=== PATIENT | male | born 1965 | race African-American/Black ===

== ENCOUNTER 2017-10-31 15:57 | Emergency (ER) | payer MEDICAID ==
[2017-10-31] MEDS ORDERED: Adacel (T-DAP) 0.5 ML VIAL ONE (17:09)
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
== END 2017-10-31 17:39 | disposition home or self-care (01) ==
LOC: ERS 15:57
DX: S01.01XA Laceration without foreign body of scalp, initial encounter (principal); E78.5 Hyperlipidemia, unspecified; I10 Essential (primary) hypertension; F17.210 Nicotine dependence, cigarettes, uncomplicated; Y08.02XA Assault by strike by baseball bat, initial encounter
CPT/HCPCS: 12001; 70450; 90471; 90715

== ENCOUNTER 2019-03-10 14:39 | Emergency (ER) | payer MEDICAID ==
[2019-03-10 15:02] LABS: #Lymphocytes 1.2 thou/uL (1.20-3.40); #Monocytes 0.5 thou/uL (0.11-0.59); %Basophils 0.1 % (0.0-1.0); %Eosinophils 0.1 % (0.0-10.0); %Lymphocytes 15.7 % (21.0-51.0); %Neutrophils 77.1 % (42.0-75.0); Hemoglobin 12.5 g/dL (14.0-18.0); Mean Corpuscular HGB CONC 31.9 g/dL (32.0-36.0); Mean Corpuscular Hemoglobin 25.4 pg (27.0-31.0); Mean Corpuscular Volume 79.7 fL (78.0-98.0); Mean Platelet Volume 9.1 fL (7.4-10.4); Platelet Count 203 thou/uL (130-400); Red Blood Cell (RBC) Count 4.91 mill/uL (4.70-6.10); White Blood Cell (WBC) Count 7.8 thou/uL (4.8-10.8)
[2019-03-10 15:24] LABS: ALT (SGPT) 24 U/L (8-55); AST (SGOT) 38 U/L (5-34); Alkaline Phosphatase 50 U/L (40-150); Anion Gap 12 mmol/L (10-20); BUN (Urea Nitrogen) 17 mg/dL (8.4-25.7); Bilirubin, Total 1.2 mg/dL (0.2-1.2); CK (CPK) 1368 U/L (30-200); Calc. Creatinine Clearance 0 mL/min (70-130); Calcium 9.7 mg/dL (7.8-10.44); Carbon Dioxide 26 mmol/L (22-29); Chloride 105 mmol/L (98-107); Estimated GFR-MDRD 72; Globulin 2.8 g/dL (2.4-3.5); Glucose 78 mg/dL (70-105); Potassium 4.2 mmol/L (3.5-5.1); Protein, Total 6.8 g/dL (6.0-8.3); Sodium 139 mmol/L (136-145)
--- NOTE | 2019-03-10 15:43 | CT ---
CT brain. HISTORY: Altered mental status. Comparison made to a previous exam from 10/31/2017. CT images demonstrated old right posterior cerebral artery arterial area of stroke. No evidence of acute intracranial masses or lesions seen. No significant interval change is noted. IMPRESSION: no acute intracranial abnormalities noted.
--- NOTE | 2019-03-10 15:45 | RAD ---
AP view chest. HISTORY: Altered mental status. AP view chest is obtained. The lungs are well aerated. No evidence of active intrathoracic disease se en. No evidence of effusions, pneumonia or pneumothorax seen IMPRESSION: Unremarkable AP view chest.
== END 2019-03-10 17:16 | disposition home or self-care (01) ==
LOC: ERS 14:39
DX: N39.0 Urinary tract infection, site not specified (principal); E78.5 Hyperlipidemia, unspecified; I10 Essential (primary) hypertension; F17.210 Nicotine dependence, cigarettes, uncomplicated
CPT/HCPCS: 36415; 70450; 71045; 80053; 82550; 84484; 85025; 93005

== ENCOUNTER 2019-05-06 12:00 | Emergency (ER) | payer OTHER ==
[2019-05-06 12:44] LABS: #Eosinphils 0.1 thou/uL (0.0-0.7); #Lymphocytes 1.3 thou/uL (1.20-3.40); #Monocytes 0.6 thou/uL (0.11-0.59); #Neutrophils 8.5 thou/uL (1.40-6.50); %Basophils 0.4 % (0.0-1.0); %Eosinophils 0.6 % (0.0-10.0); %Lymphocytes 12.7 % (21.0-51.0); %Monocytes 5.5 % (0.0-10.0); %Neutrophils 80.7 % (42.0-75.0); Hemoglobin 13.3 g/dL (14.0-18.0); Mean Corpuscular HGB CONC 31.4 g/dL (32.0-36.0); Mean Corpuscular Hemoglobin 25.4 pg (27.0-31.0); Mean Corpuscular Volume 80.8 fL (78.0-98.0); Mean Platelet Volume 9.3 fL (7.4-10.4); Platelet Count 178 thou/uL (130-400); RBC Distribution Width 15.5 % (11.5-14.5); Red Blood Cell (RBC) Count 5.22 mill/uL (4.70-6.10); White Blood Cell (WBC) Count 10.5 thou/uL (4.8-10.8)
[2019-05-06 13:04] LABS: Anion Gap 19 mmol/L (10-20); BUN (Urea Nitrogen) 16 mg/dL (8.4-25.7); Calc. Creatinine Clearance 0 mL/min (70-130); Calcium 8.9 mg/dL (7.8-10.44); Carbon Dioxide 19 mmol/L (22-29); Chloride 106 mmol/L (98-107); Estimated GFR-MDRD 69; Glucose 65 mg/dL (70-105); Potassium 3.7 mmol/L (3.5-5.1); Sodium 140 mmol/L (136-145)
[2019-05-06] MEDS ORDERED: Acetaminophen 500 MG TAB ONE (13:26)
--- NOTE | 2019-05-06 13:53 | CT ---
Exam: Head CT without contrast HISTORY: 2 seizure episodes today. COMPARISON: 03/10/2019 FINDINGS: Hemorrhage: No intraparenchymal hemorrhage or extra-axial hematoma. Brain parenchyma: Stable malacic change involving the medial right occipital and parietal lobe. Addit ional stable malacic change involving bilateral cerebellar hemispheres. No parenchymal mass, mass effect or midline shift. The degree of cortical gramajo-white matter differentiation is unchanged. Ventricular system: Ventricles and sulci are patent and symmetric. Calvarium: Intact. Sinuses and mastoid air cells: Adequate aeration. IMPRESSION: 1. No acute intracranial process. 2. Stable malacic changes involving the left and right cerebellar hemisphere in the right cerebrum.
[2019-05-06 15:05] LABS: Amphetamine Not Detected (NotDetected); Barbiturates Screen Not Detected (NotDetected); Benzodiazepine Screen Not Detected (NotDetected); Cocaine Metabolite Screen Detected (NotDetected); Medtox Control Line Valid? VALID (VALID); Medtox Reader # READER 4; Methadone Not Detected (NotDetected); Methamphetamine Not Detected (NotDetected); Opiate Screen Not Detected (NotDetected); Oxycodone Screen Not Detected (NotDetected); Phencyclidine (PCP) Not Detected (NotDetected); THC/Cannabinoid Screen Not Detected (NotDetected); Tricyclic Screen Not Detected (NotDetected)
== END 2019-05-06 14:53 | disposition home or self-care (01) ==
LOC: ERS 12:00
DX: G40.909 Epilepsy, unspecified, not intractable, without status epilepticus (principal); F14.10 Cocaine abuse, uncomplicated; I10 Essential (primary) hypertension; F17.210 Nicotine dependence, cigarettes, uncomplicated; E78.5 Hyperlipidemia, unspecified
CPT/HCPCS: 36415; 70450; 80048; 80306; 85025; 93005; 96360; 96361

== ENCOUNTER 2020-01-26 22:07 | Observation (INO) | payer MEDICAID, OTHER ==
[2020-01-26 22:46] LABS: #Basophils 0.1 thou/uL (0.0-0.2); #Eosinphils 0.1 thou/uL (0.0-0.7); #Lymphocytes 1.6 thou/uL (1.20-3.40); #Monocytes 0.4 thou/uL (0.11-0.59); #Neutrophils 3.3 thou/uL (1.40-6.50); %Basophils 2.1 % (0.0-1.0); %Eosinophils 2.4 % (0.0-10.0); %Lymphocytes 28.8 % (21.0-51.0); %Monocytes 7.6 % (0.0-10.0); %Neutrophils 59.1 % (42.0-75.0); Hemoglobin 13.8 g/dL (14.0-18.0); Mean Corpuscular HGB CONC 31.2 g/dL (32.0-36.0); Mean Corpuscular Hemoglobin 25.2 pg (27.0-31.0); Mean Corpuscular Volume 80.6 fL (78.0-98.0); Platelet Count 190 thou/uL (130-400); RBC Distribution Width 13.9 % (11.5-14.5); Red Blood Cell (RBC) Count 5.49 mill/uL (4.70-6.10); White Blood Cell (WBC) Count 5.6 thou/uL (4.8-10.8)
[2020-01-26] MEDS ORDERED: levETIRAcetam 1000 MG/100 ML PREMIX BAG ONE (22:59)
[2020-01-26] MEDS ORDERED: Lorazepam 2 MG/ML VIAL ONE (22:59)
[2020-01-26 23:04] LABS: Bilirubin Negative (Negative); Blood, Urine Trace (Negative); Clarity Clear (Clear); Glucose, Urine (Dipstick) Normal (Negative); Leukocyte Negative Leu/uL (Negative); Nitrite Negative (Negative); Protein, Urine (Dipstick) 20 mg/dL (Neg-Trace); RBC/HPF 0-3 HPF (0-3); Squamous Epithelial 0-3 HPF (0-3); Urobilinogen Normal mg/dL (Less than 2)
[2020-01-26 23:05] LABS: Bacteria/HPF 1+ HPF (None Seen)
[2020-01-26 23:12] LABS: Amphetamine Not Detected (NotDetected); Barbiturates Screen Not Detected (NotDetected); Benzodiazepine Screen Not Detected (NotDetected); Cocaine Metabolite Screen Detected (NotDetected); Medtox Control Line Valid? VALID (VALID); Medtox Reader # READER 4; Methadone Not Detected (NotDetected); Methamphetamine Not Detected (NotDetected); Opiate Screen Not Detected (NotDetected); Oxycodone Screen Not Detected (NotDetected); Phencyclidine (PCP) Not Detected (NotDetected); THC/Cannabinoid Screen Not Detected (NotDetected); Tricyclic Screen Not Detected (NotDetected)
[2020-01-26 23:12] LABS: ALT (SGPT) 14 U/L (8-55); AST (SGOT) 14 U/L (5-34); Albumin 4.2 g/dL (3.5-5.0); Alkaline Phosphatase 46 U/L (40-110); Anion Gap 18 mmol/L (10-20); BUN (Urea Nitrogen) 17 mg/dL (8.4-25.7); Bilirubin, Total 0.2 mg/dL (0.2-1.2); Calc. Creatinine Clearance 0 mL/min (70-130); Calcium 9.6 mg/dL (7.8-10.44); Carbon Dioxide 18 mmol/L (22-29); Chloride 107 mmol/L (98-107); Estimated GFR-MDRD 66; Globulin 3.1 g/dL (2.4-3.5); Glucose 77 mg/dL (70-105); Potassium 3.6 mmol/L (3.5-5.1); Protein, Total 7.3 g/dL (6.0-8.3); Sodium 139 mmol/L (136-145)
[2020-01-27] MEDS ORDERED: Lorazepam 2 MG/ML VIAL SLOW IVP PRN (01:26)
[2020-01-27] MEDS ORDERED: Acetaminophen 325 MG TAB PO PRN (01:27)
[2020-01-27] MEDS ORDERED: Acetaminophen 650 MG Suppository PR PRN (01:27)
[2020-01-27] MEDS ORDERED: Ondansetron ODT 4 MG TAB SL PRN (01:52)
[2020-01-27] MEDS ORDERED: Ondansetron PF 4 MG/2 ML Vial IVP PRN (01:52)
--- NOTE | 2020-01-27 02:41 | HP ---
TIME OF ASSESSMENT: 0100 hours. CHIEF COMPLAINT: Seizure. HISTORY OF PRESENT ILLNESS: Mr. Krishna is a 54-year-old gentleman who was brought in to the emergency department by EMS after having a seizure in his home, which his reported lasted anywhere between 10 seconds to 1 minute. The patient apparently had fallen asleep and that is the last thing he remembers before waking up in the emergency department. He apparently had a second seizure while in the ED that lasted 20 seconds. He was given Ativan and started on Keppra. The patient reported to the ED staff that he had run out of his antiseizure medication over a week ago. He does not recall the name of the medication. He also admitted to daily cocaine use. He denied any recent fevers, chills, or sweats. Had been in his usual state of health. He underwent laboratory studies in the ER, and initial prolactin obtained, was normal at 14.47. He had a white count of 5.6, hemoglobin of 13.8, platelets of 190, neutrophils 59.1. Sodium 139, potassium 3.6, BUN 17, creatinine 1.37, and GFR 66. Renal function was essentially stable from 1 year ago. LFTs unremarkable. He had a urinalysis done, showing trace ketones, trace blood, 11 to 20 white blood cells, 1+bacteria. Urine drug screen was positive for cocaine. At this present time, the patient is lethargic, able to follow minimal commands. Difficulty obtaining history from the patient directly. Of note, his last echo on file was done in August 2015, showing mild mitral regurgitation and atherosclerotic debris in the descending aorta. This was a transesophageal echocardiogram. ALLERGIES: NO KNOWN DRUG ALLERGIES. CURRENT MEDICATIONS: Unknown. is not at bedside and could not be reached by the ED staff. PAST MEDICAL HISTORY: 1. Hyperlipidemia. 2. Hypertension. 3. Seizure disorder. PAST SURGICAL HISTORY: Bilateral knee replacements. SOCIAL HISTORY: The patient smokes cigarettes half pack per day for the last 30 years. He drinks socially on a weekly basis. He uses drugs daily. PHYSICAL EXAMINATION: GENERAL: The patient appears lethargic and responsive to voice. VITAL SIGNS: Temperature 98.1, pulse 67, blood pressure 129/76, respirations 18, and O2 saturation 98% on room air. HEENT: Normocephalic and atraumatic. Pupils are equal, round, reactive to light. Sclerae without icterus. Oropharynx clear. NECK: Supple. LUNGS: Clear bilaterally without wheezes, rales, or rhonchi. Normal chest expansion. No tachypnea. CARDIAC: Regular rate and rhythm. ABDOMEN: Soft, nontender, and nondistended. Normoactive bowel sounds present. No guarding or rigidity. EXTREMITIES: No lower leg swelling or edema. NEUROLOGIC: Alert and oriented x2. Alert to person and place. Able to answer a couple of questions and able to follow some commands, but mostly drowsy throughout the examination. SKIN: Warm and dry. INVESTIGATIONS: As mentioned above in HPI. IMPRESSION AND PLAN: Mr. Krishna is a 54-year-old gentleman who is being admitted for management of the followin. Seizure. The patient has been off his antiseizure medications for over a week. The first seizure was witnessed by his at home. Second seizure lasted 20 minutes and was a tonic-clonic seizure witnessed by the ED staff, treated with Ativan and Keppra. We will repeat prolactin. We will also obtain CT of the head. Home medications would be verified with . For now, we will continue Keppra. The patient will remain on seizure precautions and will be n.p.o. for now. 2. Cocaine use. The patient admitted to daily cocaine use. Last echo on file was in 2014. We will add a BNP to his labs. We will obtain a baseline EKG. 3. Hypertension. Monitor blood pressure. Reconcile home medications once verified. 4. Hyperlipidemia. We will reconcile home medications once verified. 5. Gastrointestinal prophylaxis with famotidine 10 mg IV b.i.d. 6. Deep venous thrombosis prophylaxis. The patient is ambulatory at baseline. 7. Code status: Full. His surrogate decision maker is his , Elidia Kumar. Case discussed with Dr. Curry who agrees with plan of care as described above. Job ID: [id number]
[2020-01-27 03:49] VITALS: BMI 30.2
[2020-01-27 04:56] LABS: #Lymphocytes 1.4 thou/uL (1.20-3.40); #Monocytes 0.4 thou/uL (0.11-0.59); #Neutrophils 4.7 thou/uL (1.40-6.50); %Basophils 0.6 % (0.0-1.0); %Eosinophils 0.6 % (0.0-10.0); %Lymphocytes 21.1 % (21.0-51.0); %Monocytes 6.6 % (0.0-10.0); %Neutrophils 71.1 % (42.0-75.0); Hemoglobin 14.2 g/dL (14.0-18.0); Mean Corpuscular HGB CONC 33.2 g/dL (32.0-36.0); Mean Corpuscular Hemoglobin 26.7 pg (27.0-31.0); Mean Corpuscular Volume 80.3 fL (78.0-98.0); Platelet Count 185 thou/uL (130-400); RBC Distribution Width 14.1 % (11.5-14.5); Red Blood Cell (RBC) Count 5.34 mill/uL (4.70-6.10); White Blood Cell (WBC) Count 6.6 thou/uL (4.8-10.8)
[2020-01-27 05:23] LABS: Anion Gap 12 mmol/L (10-20); BUN (Urea Nitrogen) 16 mg/dL (8.4-25.7); Calc. Creatinine Clearance 83 mL/min (70-130); Calcium 9.3 mg/dL (7.8-10.44); Carbon Dioxide 21 mmol/L (22-29); Chloride 109 mmol/L (98-107); Estimated GFR-MDRD 67; Glucose 94 mg/dL (70-105); Potassium 3.8 mmol/L (3.5-5.1); Sodium 138 mmol/L (136-145)
--- NOTE | 2020-01-27 08:07 | CT ---
PRELIMINARY REPORT/[facility]/EMERGENCY AFTER HOURS PROCEDURE PROCEDURE: CT Head without Contrast . HISTORY: Seizure this evening. TECHNIQUE: Axial images were performed without the administration of IV contrast with or without mult iplanar reformations . COMPARISON: 05/06/2019. FINDINGS: Brain shows no mass, hemorrhage, or acute stroke. 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 RIGHT cerebellar encephalomalacia is unchanged. Ventricles are normal size for patient's age. No acute skull or scalp abnormality. Visualized sinuses and mastoids are clear. IMPRESSION: No acute intracranial abnormality. 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 ELECTRONICALLY SIGNED BY: Ciaran Way MD Jan 27, 2020 1:52:37 AM CDT This report is intended for review by the ordering physician only, in accordance of law. If you recei ve this report in error, please call [facility] at [phone]. FINAL REPORT Exam: Head CT without contrast HISTORY: Seizure disorder. Grand mal seizure. COMPARISON: 05/06/2019 FINDINGS: Hemorrhage: No intraparenchymal hemorrhage or extra-axial hematoma. Brain parenchyma: Stable encephalomalacia involving the right occipital and temporal lobe. Associated porencephalic cyst. Remainder the cerebrum demonstrates cortical gramajo-white matter differentiation. Ventricular system: Ventricles and sulci are patent and symmetric. Calvarium: Intact. Sinuses and mastoid air cells: Adequate aeration. IMPRESSION: This report is in agreement with initial report by [facility]. No acute intracranial process. Transcribed Date/Time: 01/27/2020 9:53 AM
[2020-01-27 11:12] VITALS: BP 154/88
[2020-01-27 11:14] VITALS: TEMP 97.9
[2020-01-27] MEDS ORDERED: FLU VACC QS2019-20(6MOS UP)/PF 60 MCG/0.5 ML SYRINGE IM ONE (21:00)
--- NOTE | 2020-01-28 21:45 | EKG ---
Test Reason : Blood Pressure : / mmHG Vent. Rate : 058 BPM Atrial Rate : 058 BPM P-R Int : 164 ms QRS Dur : 106 ms QT Int : 434 ms P-R-T Axes : 061 065 038 degrees QTc Int : 426 ms Sinus bradycardia Voltage criteria for left ventricular hypertrophy Nonspecific ST and T wave abnormality Abnormal ECG When compared with ECG of 06-MAY-2019 12:25, No significant change was found Confirmed by MAURICE DAWSON, SLaure (4) on 01/28/2020 9:45:23 PM Referred By: FRANKIE Confirmed By:DR. Loren RICHARDS MD
== END 2020-01-27 13:06 | disposition home or self-care (01) ==
LOC: ERS 22:07 → 2SE 01-27 01:04
PROVIDERS: ADMIT Family Medicine; ATTEND Family Medicine
DX: G40.409 Other generalized epilepsy and epileptic syndromes, not intractable, without status epilepticus (principal); E78.5 Hyperlipidemia, unspecified; I10 Essential (primary) hypertension; F17.210 Nicotine dependence, cigarettes, uncomplicated; F14.10 Cocaine abuse, uncomplicated; Z79.82 Long term (current) use of aspirin; Z79.899 Other long term (current) drug therapy; Z96.653 Presence of artificial knee joint, bilateral
CPT/HCPCS: 36415; 70450; 80048; 80053; 80306; 81003; 81015; 84146; 84443; 85025; 93005; 93010; 96365; 96375; G0378; J1953; J2060

== ENCOUNTER 2020-02-05 03:30 | Emergency (ER) | payer MEDICAID ==
[2020-02-05 04:17] LABS: #Eosinphils 0.1 thou/uL (0.0-0.7); #Lymphocytes 1.3 thou/uL (1.20-3.40); #Monocytes 0.3 thou/uL (0.11-0.59); %Basophils 0.9 % (0.0-1.0); %Eosinophils 1.8 % (0.0-10.0); %Lymphocytes 27.6 % (21.0-51.0); %Monocytes 6.3 % (0.0-10.0); %Neutrophils 63.4 % (42.0-75.0); Hemoglobin 14.1 g/dL (14.0-18.0); Mean Corpuscular Hemoglobin 25.7 pg (27.0-31.0); Mean Corpuscular Volume 80.4 fL (78.0-98.0); Mean Platelet Volume 9.8 fL (7.4-10.4); Platelet Count 180 thou/uL (130-400); RBC Distribution Width 13.8 % (11.5-14.5); White Blood Cell (WBC) Count 4.8 thou/uL (4.8-10.8)
[2020-02-05 04:44] LABS: ALT (SGPT) 16 U/L (8-55); AST (SGOT) 19 U/L (5-34); Albumin 4.1 g/dL (3.5-5.0); Alkaline Phosphatase 47 U/L (40-110); Anion Gap 15 mmol/L (10-20); BUN (Urea Nitrogen) 13 mg/dL (8.4-25.7); Bilirubin, Total 0.4 mg/dL (0.2-1.2); Calc. Creatinine Clearance 0 mL/min (70-130); Calcium 9.7 mg/dL (7.8-10.44); Carbon Dioxide 21 mmol/L (22-29); Chloride 107 mmol/L (98-107); Estimated GFR-MDRD 65; Globulin 3.1 g/dL (2.4-3.5); Glucose 88 mg/dL (70-105); Potassium 4.4 mmol/L (3.5-5.1); Protein, Total 7.2 g/dL (6.0-8.3); Sodium 139 mmol/L (136-145)
[2020-02-05] MEDS ORDERED: levETIRAcetam 500 MG TAB PO SCH (05:30)
== END 2020-02-05 10:16 | disposition home or self-care (01) ==
LOC: ERS 03:30
DX: R56.9 Unspecified convulsions (principal); E78.5 Hyperlipidemia, unspecified; E78.00 Pure hypercholesterolemia, unspecified; I10 Essential (primary) hypertension; F17.210 Nicotine dependence, cigarettes, uncomplicated; Z91.14 Patient's other noncompliance with medication regimen
CPT/HCPCS: 36415; 80053; 80177; 85025; 99285

== ENCOUNTER 2020-05-08 08:16 | Inpatient (IN) | payer MEDICAID, OTHER ==
[2020-05-08] MEDS ORDERED: Lorazepam 2 MG/ML VIAL ONE (08:28)
[2020-05-08] MEDS ORDERED: Ondansetron PF 4 MG/2 ML Vial ONE (08:34)
[2020-05-08 08:42] LABS: Analyzer IN Cardio ER; Base Excess (BEa) -15.9 mEq/L (-2.0 to +3.0); CO2 Tension 41.1 mmHg (35.0-45.0); Calcium, Ionized (arterial) 1.29 mmol/L (1.12-1.30); Hemoglobin (Hb) 15.2 g/dL (14.0-18.0); Potassium - ABG Lab 3.65 mmol/L (3.70-5.30); pH, Arterial 7.12 (7.35-7.45)
[2020-05-08 08:43] LABS: ALV-art Gradient 129.305 (0-20); Puncture Site RBA
--- NOTE | 2020-05-08 09:04 | CT ---
CT Brain WO Con HISTORY: Altered mental status, seizure COMPARISON: 01/27/2020 FINDINGS: Encephalomalacia with porencephalic cyst formation involving the right temporal and occipital lobe an d cerebellar hemispheric encephalomalacia are unchanged. The ventricular size is stable and the basilar cisterns are patent. No evidence of acute infarct or hemorrhage or midline shift is seen. The bony calvarium is intact. Th ere is mucosal disease in the paranasal sinuses. IMPRESSION: No CT evidence of acute intracranial process.
[2020-05-08 09:27] LABS: #Lymphocytes 0.4 thou/uL (1.20-3.40); #Monocytes 0.5 thou/uL (0.11-0.59); #Neutrophils 13.5 thou/uL (1.40-6.50); %Basophils 0.1 % (0.0-1.0); %Eosinophils 0.1 % (0.0-10.0); %Lymphocytes 2.8 % (21.0-51.0); %Monocytes 3.5 % (0.0-10.0); %Neutrophils 93.4 % (42.0-75.0); Hemoglobin 14.9 g/dL (14.0-18.0); Mean Corpuscular HGB CONC 30.7 g/dL (32.0-36.0); Mean Corpuscular Hemoglobin 25.6 pg (27.0-31.0); Mean Corpuscular Volume 83.4 fL (78.0-98.0); Mean Platelet Volume 9.7 fL (7.4-10.4); Platelet Count 188 thou/uL (130-400); RBC Distribution Width 13.8 % (11.5-14.5); Red Blood Cell (RBC) Count 5.82 mill/uL (4.70-6.10); White Blood Cell (WBC) Count 14.4 thou/uL (4.8-10.8)
--- NOTE | 2020-05-08 09:31 | RAD ---
XR Chest 1 View Portable HISTORY: Altered mental status, seizures COMPARISON: 03/10/2019 FINDINGS: The heart size is normal. The lungs are well expanded without focal areas of consolidation, pneumothorax or pleural effusions. IMPRESSION: No radiographic evidence of acute cardiopulmonary process.
[2020-05-08 09:56] LABS: ALT (SGPT) 33 U/L (8-55); AST (SGOT) 35 U/L (5-34); Acetaminophen Less than 6.0 mcg/mL (10.0-30.0); Albumin 4.5 g/dL (3.5-5.0); Alcohol Less than 10 mg/dL (Less than 10); Alkaline Phosphatase 62 U/L (40-110); Anion Gap 20 mmol/L (10-20); BUN (Urea Nitrogen) 20 mg/dL (8.4-25.7); Bilirubin, Total 0.6 mg/dL (0.2-1.2); Calc. Creatinine Clearance 0 mL/min (70-130); Calcium 9.9 mg/dL (7.8-10.44); Carbon Dioxide 20 mmol/L (22-29); Chloride 103 mmol/L (98-107); Estimated GFR-MDRD 56; Globulin 3.4 g/dL (2.4-3.5); Glucose 84 mg/dL (70-105); Protein, Total 7.9 g/dL (6.0-8.3); Salicylate Less than 8.0 mg/dL (15.0-30.0); Sodium 139 mmol/L (136-145)
[2020-05-08] MEDS ORDERED: Cefepime 2 GM VIAL ONE (10:13)
[2020-05-08] MEDS ORDERED: Vancomycin HCl 1.5 GM in Sodium Chloride 0.9% 250 ML 300 ML IVPB SCH (10:30)
[2020-05-08] MEDS ORDERED: Sodium Bicarb 50 MEQ/50 ML Abboject 8.4% SYRINGE IVP SCH (10:30)
[2020-05-08] MEDS ORDERED: Vancomycin 1.5 GRAM/300 ML BAG 1.5 GM in Premix Bag 1 BAG IVPB SCH (10:45)
[2020-05-08 11:04] LABS: Actual Bicarbonate (HCO3a) 22.3 mEq/L (22-28); Analyzer IN Cardio ER; Base Excess (BEa) -5.7 mEq/L (-2.0 to +3.0); Calcium, Ionized (arterial) 1.22 mmol/L (1.12-1.30); Carboxyhemoglobin (COHb) 2.6 gm% (0.0-3.0); Hemoglobin (Hb) 14.5 g/dL (14.0-18.0); O2 Tension (PaO2), arterial 85.4 mmHg (80.0-100.0); Potassium - ABG Lab 3.79 mmol/L (3.70-5.30)
[2020-05-08] MEDS ORDERED: levETIRAcetam 1000 MG/100 ML PREMIX BAG ONE (11:04)
[2020-05-08 11:05] LABS: Puncture Site RRA; pH, Arterial 7.23 (7.35-7.45)
[2020-05-08 11:53] LABS: Bilirubin Small (Negative); Blood, Urine Trace (Negative); Glucose, Urine (Dipstick) Negative (Negative); Ketone, Urine 15 mg/dL (Negative); Leukocyte Negative (Negative); Nitrite Negative (Negative); Protein, Urine (Dipstick) 30 mg/dL (Neg-Trace)
[2020-05-08 12:02] LABS: Clarity Turbid (Clear)
[2020-05-08 12:03] LABS: Specific Gravity, Urine 1.032 (1.002-1.036)
[2020-05-08 12:04] LABS: Bacteria/HPF None Seen HPF (None Seen); RBC/HPF None Seen HPF (0-3); Squamous Epithelial 0-3 HPF (0-3); WBC/HPF None Seen HPF (0-3)
[2020-05-08 12:16] LABS: Amphetamine Not Detected (NotDetected); Barbiturates Screen Not Detected (NotDetected); Benzodiazepine Screen Not Detected (NotDetected); Cocaine Metabolite Screen Detected (NotDetected); Medtox Control Line Valid? VALID (VALID); Medtox Reader # READER 4; Methadone Not Detected (NotDetected); Methamphetamine Not Detected (NotDetected); Opiate Screen Not Detected (NotDetected); Oxycodone Screen Not Detected (NotDetected); Phencyclidine (PCP) Not Detected (NotDetected); THC/Cannabinoid Screen Not Detected (NotDetected); Tricyclic Screen Not Detected (NotDetected)
[2020-05-08 13:40] LABS: Lactic Acid 3.2 mmol/L (0.5-2.2)
[2020-05-08 13:50] LABS: Troponin I 0.022 ng/mL (< 0.028)
[2020-05-08 16:30] LABS: Troponin I 0.023 ng/mL (< 0.028)
[2020-05-08] MEDS ORDERED: Ondansetron PF 4 MG/2 ML Vial IVP PRN (16:50)
[2020-05-08] MEDS ORDERED: Acetaminophen 650 MG Suppository PR PRN (16:50)
[2020-05-08] MEDS ORDERED: Acetaminophen 325 MG TAB PO PRN (16:50)
[2020-05-08] MEDS ORDERED: Bisacodyl 5 MG TAB PO PRN (16:50)
[2020-05-08] MEDS ORDERED: Vancomycin 1 GM in Premix Bag 1 BAG IVPB SCH (17:00)
--- NOTE | 2020-05-08 17:40 | HP ---
PRIMARY CARE PROVIDER: Shelly Gonsalves. CHIEF COMPLAINT: Unresponsive. HISTORY OF PRESENT ILLNESS: Mr. Krishna is a 54-year-old gentleman who was seen at [facility] on May 08, 2020. He was hospitalized at this facility on January 27, 2020, for seizure and cocaine abuse. The patient is currently unable to provide any history. Collateral history was obtained from review of medical records, and discussion with emergency room physician. The patient was reportedly unresponsive at home. EMS was called. The patient's oxygen saturation was 88% on room air. Oxygen saturation improved to 95% on 4 L of oxygen. The patient reportedly had a seizure in the emergency room and shortly after that, began vomiting. He was administered lorazepam and he was able to wake up and maintain his own airway. The patient is currently sleepy, but arousable, not responding to questions. REVIEW OF SYSTEMS: Could not be completed secondary to the patient's cognitive status. PAST MEDICAL HISTORY: Dyslipidemia, hypertension, and seizures. PAST SURGICAL HISTORY: Bilateral knee replacements. SOCIAL HISTORY: The patient is reportedly a current smoker. He reportedly uses cocaine. He reportedly drinks socially. FAMILY HISTORY: Could not be obtained. ALLERGIES: NO KNOWN DRUG ALLERGIES. CURRENT MEDICATIONS: Unable to obtain. PHYSICAL EXAMINATION: GENERAL: On examination, Mr. Krishna is sleepy, but arousable, not in acute distress. VITAL SIGNS: Blood pressure is 177/78, pulse 77, respiratory rate 22, and oxygen saturation is 95% on room air. He is afebrile. EYES: No scleral icterus, no conjunctival pallor. ENT: Moist mucosal membranes. The patient has a nasal trumpet. RESPIRATORY: Accessory muscles of breathing are not active. Chest wall movements are symmetric bilaterally. Lung examination reveals right lower lobe crackles. CARDIOVASCULAR: S1 and S2 are heard, regular. Peripheral pulses palpable. ABDOMEN: Soft, nontender, bowel sounds are heard. NEUROLOGIC: Full neurologic examination was not possible secondary to the patient's noncooperation. No facial droop. Deep tendon reflexes 2+, plantars downgoing bilaterally. MUSCULOSKELETAL: The patient is moving all 4 extremities. SKIN: No rashes. LYMPHATIC: No cervical lymphadenopathy. PSYCHIATRIC: Unable to assess mood, affect, or orientation to person, place, or time. LABORATORY DATA: Mr. Krishna's labs and investigations were reviewed. I reviewed his chest x-ray which does not show any pulmonary infiltrates. I also reviewed his electrocardiogram which shows normal sinus rhythm, no ST changes to suggest an acute coronary syndrome. He has leukocytosis with 14,400 white cells, normal hemoglobin, normal platelet count, 93% neutrophilia, normal sodium, normal potassium, elevated creatinine of 1.58, lactic acid initially elevated at 9.2, subsequently trending down to 3.2, mildly elevated AST of 35, otherwise unremarkable LFTs and troponin-I that is negative x2. Ammonia level is normal. Arterial blood gases initially showed pH 7.12, PO2 of 76, and pCO2 of 41. Repeat blood gases done at 11 a.m. showed pH 7.23, PO2 of 85, and pCO2 of 54. Urinalysis is negative for nitrite and leukocyte esterase. Urine toxicology screen showed cocaine metabolites. Rapid RNA test was negative for COVID virus. ASSESSMENT AND PLAN: Mr. Krishna is a 54-year-old gentleman who was seen at [facility] on May 08, 2020. His problem list includes: 1. Acute metabolic encephalopathy: Likely secondary to seizure. The patient appears to have improved since being brought to the emergency room. He will be admitted to the hospital for further management. He will be started on Accu-Cheks. 2. Seizure: The patient had witnessed seizure in the emergency room. He will be started on Keppra. Neurology Service will be consulted for opinion and help with further management. 3. Metabolic acidosis: Secondary to lactic acidosis from seizure activity. Lactic acid level has improved. He will have repeat labs in the morning to evaluate for acidosis. 4. Chronic kidney disease, stage 3: This appears to be stable. 5. History of cocaine use: The patient will be counseled when more awake. 6. The patient has been started on empiric antibiotics in the form of vancomycin and cefepime for suspected aspiration because he vomited in the emergency room. I will continue these and add metronidazole for now. We will follow blood cultures. Many thanks for allowing me to participate in your patient's care. Please feel free to contact me with any questions or concerns. LEVEL OF RISK: High. LEVEL OF COMPLEXITY: High. Job ID: [id number]
[2020-05-08 20:49] VITALS: BMI 23.6
[2020-05-08] MEDS: Cefepime 2 GM in Sodium Chloride 0.9% 100 ML IVPB SCH (21:56)
[2020-05-08] MEDS: Sodium Chloride 0.9% 1,000 ML IV SCH (21:56)
[2020-05-08] MEDS: Nicotine 21 MG PATCH TD SCH (22:11)
[2020-05-08] MEDS: levETIRAcetam In NaCl (Iso-Os) 1,000 MG in Premix Bag 1 BAG IVPB SCH (22:41)
[2020-05-08] MEDS: metroNIDAZOLE 500 MG in Premix Bag 1 BAG IVPB SCH (23:20)
[2020-05-09 05:06] LABS: #Monocytes 0.5 thou/uL (0.11-0.59); %Basophils 0.1 % (0.0-1.0); %Eosinophils 0.3 % (0.0-10.0); %Lymphocytes 9.2 % (21.0-51.0); %Monocytes 4.5 % (0.0-10.0); %Neutrophils 85.9 % (42.0-75.0); Hemoglobin 13.1 g/dL (14.0-18.0); Mean Corpuscular HGB CONC 30.4 g/dL (32.0-36.0); Mean Corpuscular Hemoglobin 24.9 pg (27.0-31.0); Mean Corpuscular Volume 81.9 fL (78.0-98.0); Mean Platelet Volume 9.7 fL (7.4-10.4); Platelet Count 175 thou/uL (130-400); RBC Distribution Width 13.6 % (11.5-14.5); Red Blood Cell (RBC) Count 5.25 mill/uL (4.70-6.10); White Blood Cell (WBC) Count 10.5 thou/uL (4.8-10.8)
[2020-05-09] MEDS: metroNIDAZOLE 500 MG in Premix Bag 1 BAG IVPB SCH (05:14)
[2020-05-09 05:16] LABS: Anion Gap 10 mmol/L (10-20); BUN (Urea Nitrogen) 16 mg/dL (8.4-25.7); Calc. Creatinine Clearance 65 mL/min (70-130); Calcium 8.8 mg/dL (7.8-10.44); Carbon Dioxide 23 mmol/L (22-29); Chloride 111 mmol/L (98-107); Estimated GFR-MDRD 66; Glucose 123 mg/dL (70-105); Potassium 3.4 mmol/L (3.5-5.1); Sodium 141 mmol/L (136-145)
[2020-05-09] MEDS: Cefepime 2 GM in Sodium Chloride 0.9% 100 ML IVPB SCH (08:54)
[2020-05-09] MEDS: Multivitamins, Adult 10 ML, Thiamine HCl 100 MG, Folic Acid 1 MG in Dextrose 5 %-0.45 %... IV SCH (08:54)
[2020-05-09] MEDS: levETIRAcetam In NaCl (Iso-Os) 1,000 MG in Premix Bag 1 BAG IVPB SCH ×2 (08:55→22:20)
[2020-05-09] MEDS: Enoxaparin Sodium 40 MG/0.4 ML SYRINGE SC SCH (08:55)
--- NOTE | 2020-05-09 09:18 | MRI ---
MRI BRAIN PERFORMED WITHOUT CONTRAST ENHANCEMENT: Date: 05/09/2020 HISTORY: Patient is unresponsive. History of seizures and drug use. COMPARISON: CT brain dated 05/08/2020. FINDINGS: The ventricular and cisternal system is within normal limits. Old infarct and encephalomalacia change again noted in the right occipital region. On the gradient sequence, I do not appreciate any evidenc e for hemorrhage. No intra or extra-axial masses. Diffusion-weighted sequence does not show any signs of acute infarct. IMPRESSION: 1. Old right occipital infarct. No acute findings. 2. Incidental note is made of almost complete opacification of both maxillary sinuses and extensive bilateral ethmoid air cell disease. Also, mild frontal and sphenoid air cell changes. POS: RUI
[2020-05-09] MEDS ORDERED: Vancomycin 1.5 GRAM/300 ML BAG 1.5 GM in Premix Bag 1 BAG IVPB SCH (12:00)
--- NOTE | 2020-05-09 12:05 | CON ---
NEUROLOGY CONSULTATION DATE OF CONSULTATION: 05/09/2020 REASON FOR CONSULTATION: Altered mental status/breakthrough seizure. HISTORY OF PRESENT ILLNESS: Mr. Krishna is a 54-year-old male with history significant for dyslipidemia, hypertension, and seizure disorder, presented to [facility] on May 08, 2020 with an episode of unresponsiveness. He also has a history of cocaine abuse. The patient is extremely somnolent. The history was obtained from review of the medical records. Per records, he was found unresponsive at home. EMS was called. The patient's oxygen saturation was 88% . He was given oxygen, and when he arrived to the emergency room, he had a seizure, characterized by whole-body jerking with vomiting. He was given Ativan and admitted to the floor for further management. REVIEW OF SYSTEMS: Unobtainable since the patient is extremely somnolent. PAST MEDICAL HISTORY: Hypertension, seizure disorder, dyslipidemia, prior stroke, old occipital infarct. PAST SURGICAL HISTORY: Bilateral knee replacement. SOCIAL HISTORY: The patient has history of nicotine abuse and cocaine abuse. He drinks socially. FAMILY HISTORY: No family history of seizures. ALLERGIES: NO KNOWN DRUG ALLERGIES. MEDICATIONS: None. PHYSICAL EXAMINATION: VITAL SIGNS: Blood pressure 170/80, pulse 80, respiratory rate 18. CVS: Regular rate and rhythm. CHEST: Clear. ABDOMEN: Soft. NECK: No carotid bruit. NEUROLOGIC: Mental status; the patient is extremely somnolent. He knows his name and place, but not the date and the year. Speech is clear. Follows commands intermittently. Cranial nerves; pupils are round and reactive to light. Face symmetric. Tongue midline. Moves neck in both directions. Hearing seems to be intact. Motor; muscle tone and bulk are normal. Moving all 4 extremities equally and symmetrically. Sensory; withdraws to pinprick bilaterally. Reflexes; symmetric bilaterally. Gait deferred due to the patient's safety reasons. LABORATORY AND DIAGNOSTIC DATA: Data reviewed. I reviewed the labs. I reviewed the chest x-ray, which was unremarkable. EKG showed normal sinus rhythm. MRI of brain reviewed, which did not reveal any acute intracranial pathology. There is presence of old occipital infarct. ASSESSMENT AND PLAN: Mr. Krishna is a 54-year-old male, who was consulted for an episode of altered mental status and also breakthrough seizure in the emergency room. Per records, he was supposed to be on Keppra, but there was a concern that he may not be taking Keppra at all. Continue Keppra 1000 mg IV b.i.d. Consider speech eval for dysphagia. If cleared, then switch Keppra to 1000 mg p.o. b.i.d. Neuro checks every 4 hours. Ativan 2 mg IV for seizure greater than 2 minutes. Recommend EEG to see the extent of interictal epileptiform discharges, which may require more aggressive management of his seizure disorder. Observe seizure precautions. Continue medical management, PT/OT/speech. Consider counseling for cocaine and nicotine abuse once he is more awake. Continue medical management per primary team. We will continue to follow. Thank you for the consult. Case was discussed with primary attending, Dr. Narayan. Job ID: [id number] [facility]
[2020-05-09] MEDS: metroNIDAZOLE 500 MG TAB PO SCH ×2 (15:22→22:03)
[2020-05-09] MEDS ORDERED: Potassium Chloride 20 MEQ TAB PO SCH (17:00)
--- NOTE | 2020-05-09 18:31 | PDOC.HOSPP ---
- Subjective Encounter Date: 05/09/20 Encounter Time: 15:00 Subjective: Pt seen for followup re: acute metabolic encephalopathy. More alert today. - Objective Vital Signs & Weight: Vital Signs (12 hours) Temp Pulse Resp BP Pulse Ox 05/09/20 15:40 98.6 F 67 16 125/62 97 05/09/20 11:53 97.8 F 65 16 127/57 L 95 05/09/20 08:05 96 05/09/20 07:46 97.6 F 65 16 132/71 96 Weight Weight 162 lb 11.2 oz I&O: 05/08/20 05/09/20 05/10/20 06:59 06:59 06:59 Intake Total 1130 2400 Output Total 400 400 Balance 730 2000 Result Diagrams: 05/09/20 04:46 05/09/20 04:46 Additional Labs: labs and MARs reviewed by me EKG Reviewed by me: Yes (Tele: NSR) Hospitalist ROS - Review of Systems Constitutional: denies: fever, chills, sweats, weakness, malaise Cardiovascular: denies: chest pain, palpitations, orthopnea, paroxysmal noc. dyspnea, edema, light headedness Gastrointestinal: denies: nausea, vomiting, abdominal pain, diarrhea, constipation, melena, hematochezia Musculoskeletal: denies: neck pain, shoulder pain, arm pain, back pain, hand pain, leg pain, foot pain Neurological: reports: confusion. denies: weakness, numbness, incoordination, change in speech, seizures - Medication Medications: Active Medications Generic Name Dose Route Start Last Admin Trade Name Wallyq PRN Reason Stop Dose Admin Acetaminophen 650 mg 05/08/20 16:50 05/09/20 08:56 Tylenol PO 650 mg Q4H PRN Administration Headache/Fever/Mild Pain (1-3) Enoxaparin Sodium 40 mg 05/09/20 09:00 05/09/20 08:55 Lovenox SC 40 mg 0900 DYLAN Administration Multivitamins 10 ml/ Thiamine 1,011.2 mls @ 125 mls/hr 05/09/20 09:00 08:54 HCl 100 mg/ Folic Acid 1 mg/ IV 1,011.2 mls Dextrose/Sodium Chloride DAILY DYLAN Administration Levetiracetam 1,000 mg/ Device 100 mls @ 200 mls/hr 05/08/20 21:00 05/09/20 08:55 IVPB 100 mls BID DYLAN Administration Sodium Chloride 1,000 mls @ 70 mls/hr 05/08/20 17:00 05/08/20 21:56 Normal Saline 0.9% IV 1,000 mls .[id number] DYLAN Administration Metronidazole 500 mg 05/09/20 14:00 05/09/20 15:22 Flagyl PO 500 mg Q8HR DYLAN Administration Nicotine 21 mg 05/08/20 21:00 05/08/20 22:11 Nicoderm Patch TD 21 mg Q24HR DYLAN Administration Potassium Chloride 40 meq 05/09/20 17:00 05/09/20 17:32 K-Dur PO 05/09/20 19:00 40 meq NOW DYLAN Administration - Exam General Appearance: NAD Eye: anicteric sclera ENT: normocephalic atraumatic, no oropharyngeal lesions Neck: supple, symmetric, no thyromegaly Heart: RRR, no gallops, no rubs, normal peripheral pulses Respiratory: CTAB, no wheezes, no rales, no ronchi, normal chest expansion Gastrointestinal: soft, non-tender, non-distended, normal bowel sounds Extremities: no cyanosis Neurological: no weakness, no focal deficits Psychiatric: normal affect, normal behavior, oriented to person, oriented to place Hosp A/P (1) Acute metabolic encephalopathy Code(s): G93.41 - METABOLIC ENCEPHALOPATHY Status: Acute (2) Seizure Code(s): R56.9 - UNSPECIFIED CONVULSIONS Status: Acute (3) Hypokalemia Code(s): E87.6 - HYPOKALEMIA Status: Acute (4) Cocaine abuse Code(s): F14.10 - COCAINE ABUSE, UNCOMPLICATED Status: Chronic (5) Tobacco abuse Code(s): Z72.0 - TOBACCO USE Status: Chronic - Plan out of bed/ambulate Pt clinically improving. Oral Flagyl for suspected aspiration. MRI brain nil acute. EEG pending. Banana bag/nicotine patch Counseling for cocoaine/tobacco abuse. Continue keppra. MRSE in 1/2 blood cultures, likely contaminant. replace potassium.
[2020-05-09] MEDS: Nicotine 21 MG PATCH TD SCH (22:03)
[2020-05-09] MEDS: Sodium Chloride 0.9% 1,000 ML IV SCH (22:04)
[2020-05-10] MEDS: Sodium Chloride 0.9% 1,000 ML IV SCH ×2 (03:49→12:31)
[2020-05-10 05:05] LABS: #Eosinphils 0.1 thou/uL (0.0-0.7); #Lymphocytes 1.6 thou/uL (1.20-3.40); #Monocytes 0.5 thou/uL (0.11-0.59); #Neutrophils 3.9 thou/uL (1.40-6.50); %Basophils 0.5 % (0.0-1.0); %Eosinophils 1.5 % (0.0-10.0); %Lymphocytes 26.1 % (21.0-51.0); %Monocytes 7.5 % (0.0-10.0); %Neutrophils 64.5 % (42.0-75.0); Hemoglobin 12.3 g/dL (14.0-18.0); Mean Corpuscular HGB CONC 29.3 g/dL (32.0-36.0); Mean Corpuscular Hemoglobin 24.4 pg (27.0-31.0); Mean Corpuscular Volume 83.1 fL (78.0-98.0); Mean Platelet Volume 9.8 fL (7.4-10.4); Platelet Count 156 thou/uL (130-400); RBC Distribution Width 13.7 % (11.5-14.5); Red Blood Cell (RBC) Count 5.03 mill/uL (4.70-6.10)
[2020-05-10 05:22] LABS: Anion Gap 9 mmol/L (10-20); BUN (Urea Nitrogen) 13 mg/dL (8.4-25.7); Calc. Creatinine Clearance 75 mL/min (70-130); Calcium 8.5 mg/dL (7.8-10.44); Carbon Dioxide 24 mmol/L (22-29); Chloride 109 mmol/L (98-107); Estimated GFR-MDRD 77; Glucose 87 mg/dL (70-105); Potassium 3.9 mmol/L (3.5-5.1); Sodium 138 mmol/L (136-145)
[2020-05-10] MEDS: metroNIDAZOLE 500 MG TAB PO SCH ×3 (05:47→21:38)
[2020-05-10] MEDS: Enoxaparin Sodium 40 MG/0.4 ML SYRINGE SC SCH (08:51)
[2020-05-10] MEDS: levETIRAcetam In NaCl (Iso-Os) 1,000 MG in Premix Bag 1 BAG IVPB SCH (08:51)
[2020-05-10] MEDS: Multivitamins, Adult 10 ML, Thiamine HCl 100 MG, Folic Acid 1 MG in Dextrose 5 %-0.45 %... IV SCH (10:08)
--- NOTE | 2020-05-10 13:04 | PDOC.HOSPP ---
- Subjective Encounter Date: 05/10/20 Subjective: NEUROLOGY PROGRESS NOTE Patient alert, awake and following commands appropriately. No seizures since admission. MRI Brain and EEG negative. - Objective Vital Signs & Weight: Vital Signs (12 hours) Temp Pulse Resp BP Pulse Ox 05/10/20 11:19 98.7 F 55 L 18 131/66 98 05/10/20 08:00 97 05/10/20 07:02 98.3 F 55 L 20 129/76 97 05/10/20 03:53 98.0 F 53 L 14 127/76 96 05/10/20 03:49 94 L Weight Weight 162 lb 11.2 oz I&O: 05/09/20 05/10/20 05/11/20 06:59 06:59 06:59 Intake Total 1130 2620 Output Total 400 825 450 Balance 730 1795 -450 Result Diagrams: 05/10/20 04:52 05/10/20 04:52 Radiology Reviewed by me: Yes EKG Reviewed by me: Yes Hospitalist ROS - Review of Systems Constitutional: denies: fever, chills, sweats, weakness, malaise, other Eyes: denies: pain, vision change, conjunctivae inflammation, eyelid inflammation, redness, other ENT: denies: ear pain, ear discharge, nose pain, nose discharge, nose congestion , mouth pain, mouth swelling, throat pain, throat swelling, other Respiratory: denies: cough, dry, shortness of breath, hemoptysis, SOB with excertion, pleuritic pain, sputum, wheezing, other Cardiovascular: denies: chest pain, palpitations, orthopnea, paroxysmal noc. dyspnea, edema, light headedness, other Gastrointestinal: denies: nausea, vomiting, abdominal pain, diarrhea, constipation, melena, hematochezia, other Genitourinary: denies: dysuria, frequency, incontinence, hematuria, retention, other Musculoskeletal: denies: neck pain, shoulder pain, arm pain, back pain, hand pain, leg pain, foot pain, other Skin: denies: rash, lesions, sherie, bruising, other Neurological: denies: weakness, numbness, incoordination, change in speech, confusion, seizures, other - Medication Medications: Active Medications Generic Name Dose Route Start Last Admin Trade Name Freq PRN Reason Stop Dose Admin Acetaminophen 650 mg 05/08/20 16:50 05/09/20 08:56 Tylenol PO 650 mg Q4H PRN Administration Headache/Fever/Mild Pain (1-3) Enoxaparin Sodium 40 mg 05/09/20 09:00 05/10/20 08:51 Lovenox SC 40 mg 0900 DYLAN Administration Multivitamins 10 ml/ Thiamine 1,011.2 mls @ 125 mls/hr 05/09/20 09:00 10:08 HCl 100 mg/ Folic Acid 1 mg/ IV 1,011.2 mls Dextrose/Sodium Chloride DAILY DYLAN Administration Metronidazole 500 mg 05/09/20 14:00 05/10/20 05:47 Flagyl PO 500 mg Q8HR DYLAN Administration Nicotine 21 mg 05/08/20 21:00 05/09/20 22:03 Nicoderm Patch TD 21 mg Q24HR DYLAN Administration - Exam General Appearance: awake alert Eye: PERRL ENT: normocephalic atraumatic Neck: supple Heart: RRR Respiratory: CTAB Gastrointestinal: soft Extremities: no cyanosis Skin: normal turgor Neurological: cranial nerve grossly intact, normal sensation to touch, no weakness, no focal deficits, no new deficit Musculoskeletal: normal tone, normal strength, no muscle wasting Psychiatric: normal affect, normal behavior, A&O x 3, oriented to person, oriented to place, oriented to time Hosp A/P (1) Seizure Code(s): R56.9 - UNSPECIFIED CONVULSIONS Status: Acute (2) Acute metabolic encephalopathy Code(s): G93.41 - METABOLIC ENCEPHALOPATHY Status: Acute (3) Tobacco abuse Code(s): Z72.0 - TOBACCO USE Status: Chronic (4) Cocaine abuse Code(s): F14.10 - COCAINE ABUSE, UNCOMPLICATED Status: Chronic - Plan 54 year old patient presented with seizure due to medication non-compliance. EEG reviewed and was negative for seizure activity. 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 Continue Keppra 1000 mg po bid. Observe seizure precautions. Continue home medications Neurochecks every 4 hours. Continue medical management per primary team. Plan discussed with the patient and the primary attending Dr. Etienne.
[2020-05-10 13:06] LABS: Lactic Acid 1.9 mmol/L (0.5-2.2)
--- NOTE | 2020-05-10 17:39 | PDOC.HOSPP ---
- Subjective Encounter Date: 05/10/20 Encounter Time: 13:00 Subjective: The patient states he is doing well. No further seizures overnight. The patient reports that he didn't take his seizure meds for two months. He has had two strokes in the past He also states that he smoked cocaine regularly, uses half pack cigarettes daily. He says he smokes cocaine when he is stressed. Reports being incarcerated in the past and he is been out of senior care for 8 years and currently on parole Does not drink a lot of alcohol. Per nursing ,patient was unsteady while walking Patient reports mild dry cough for months. No chest pain - Objective Vital Signs & Weight: Vital Signs (12 hours) Temp Pulse Resp BP Pulse Ox 05/10/20 15:37 98.6 F 60 20 164/83 H 96 05/10/20 11:19 98.7 F 55 L 18 131/66 98 05/10/20 08:00 97 05/10/20 07:02 98.3 F 55 L 20 129/76 97 Weight Weight 162 lb 11.2 oz I&O: 05/09/20 05/10/20 05/11/20 06:59 06:59 06:59 Intake Total 1130 2620 1045 Output Total 807 125 0609 Balance 730 1795 -115 Result Diagrams: 05/10/20 04:52 05/10/20 04:52 Hospitalist ROS - Review of Systems Constitutional: denies: fever, chills - Medication Medications: Active Medications Generic Name Dose Route Start Last Admin Trade Name Freq PRN Reason Stop Dose Admin Acetaminophen 650 mg 05/08/20 16:50 05/09/20 08:56 Tylenol PO 650 mg Q4H PRN Administration Headache/Fever/Mild Pain (1-3) Enoxaparin Sodium 40 mg 05/09/20 09:00 05/10/20 08:51 Lovenox SC 40 mg 0900 DYLAN Administration Multivitamins 10 ml/ Thiamine 1,011.2 mls @ 125 mls/hr 05/09/20 09:00 10:08 HCl 100 mg/ Folic Acid 1 mg/ IV 1,011.2 mls Dextrose/Sodium Chloride DAILY DYLAN Administration Metronidazole 500 mg 05/09/20 14:00 05/10/20 13:35 Flagyl PO 500 mg Q8HR DYLAN Administration Nicotine 21 mg 05/08/20 21:00 05/09/20 22:03 Nicoderm Patch TD 21 mg Q24HR DYLAN Administration - Exam General Appearance: NAD, awake alert Eye: PERRL, anicteric sclera ENT: normocephalic atraumatic, no oropharyngeal lesions Neck: no JVD Heart: RRR, no murmur, no gallops, no rubs Respiratory: rales (improved with coughing) Gastrointestinal: soft, non-tender, non-distended, normal bowel sounds Extremities: no edema Skin: normal turgor, no lesions, no rashes Neurological: cranial nerve grossly intact, normal sensation to touch, no focal deficits, no new deficit Musculoskeletal: normal tone, normal strength, no muscle wasting Psychiatric: normal behavior, A&O x 3 Hosp A/P - Plan CT brain: no acute disease MRI brain: old right occipital infarct. Complete opacification of maxillary sinus, extensive bilateral ethmoid air disease This is 54 year old male who presented with seizure Cocaine intoxication - patient interested in inpatient rehab. Case management consulted, recommended [facility] to see if patient's insurance would be covered with this Gait unsteadiness - patient unsteady while walking, will place PT evaluation Seizure - EEG normal - switch to oral keppra today Cough - mild dry cough. On flagyl. Xray normal Dispo: possibly d/c tomorrow
--- NOTE | 2020-05-10 18:39 | RAD ---
EXAM: CHEST ONE VIEW HISTORY: Fever and cough. COMPARISON: 05/08/2020 FINDINGS: The cardiac silhouette and pulmonary vasculature is within normal limits. The lungs are clear. The os seous structures are intact. No interval change from prior study. IMPRESSION: No acute cardiopulmonary process.
[2020-05-10] MEDS ORDERED: Atorvastatin Calcium 20 MG TAB PO SCH (21:00)
[2020-05-10] MEDS: Nicotine 21 MG PATCH TD SCH (21:38)
[2020-05-10] MEDS: levETIRAcetam 500 MG TAB PO SCH (21:38)
[2020-05-11 05:03] LABS: Anion Gap 9 mmol/L (10-20); BUN (Urea Nitrogen) 9 mg/dL (8.4-25.7); Calc. Creatinine Clearance 88 mL/min (70-130); Calcium 8.1 mg/dL (7.8-10.44); Carbon Dioxide 25 mmol/L (22-29); Chloride 109 mmol/L (98-107); Estimated GFR-MDRD Greater than 90; Glucose 93 mg/dL (70-105); Potassium 3.6 mmol/L (3.5-5.1); Sodium 139 mmol/L (136-145)
[2020-05-11] MEDS: metroNIDAZOLE 500 MG TAB PO SCH (06:10)
[2020-05-11 06:12] LABS: #Eosinphils 0.1 thou/uL (0.0-0.7); #Lymphocytes 1.3 thou/uL (1.20-3.40); #Monocytes 0.4 thou/uL (0.11-0.59); #Neutrophils 3.8 thou/uL (1.40-6.50); %Basophils 0.2 % (0.0-1.0); %Eosinophils 1.8 % (0.0-10.0); %Lymphocytes 22.6 % (21.0-51.0); %Monocytes 6.9 % (0.0-10.0); %Neutrophils 68.5 % (42.0-75.0); Hemoglobin 12.2 g/dL (14.0-18.0); Mean Corpuscular HGB CONC 31.7 g/dL (32.0-36.0); Mean Corpuscular Hemoglobin 26.1 pg (27.0-31.0); Mean Corpuscular Volume 82.2 fL (78.0-98.0); Mean Platelet Volume 10.4 fL (7.4-10.4); Platelet Count 165 thou/uL (130-400); RBC Distribution Width 13.7 % (11.5-14.5); Red Blood Cell (RBC) Count 4.69 mill/uL (4.70-6.10); White Blood Cell (WBC) Count 5.6 thou/uL (4.8-10.8)
[2020-05-11 07:27] VITALS: BP 149/79; TEMP 98.1
[2020-05-11] MEDS: levETIRAcetam 500 MG TAB PO SCH (08:21)
[2020-05-11] MEDS: Enoxaparin Sodium 40 MG/0.4 ML SYRINGE SC SCH (08:21)
[2020-05-11] MEDS ORDERED: Aspirin 81 mg Enteric Coated Tablet PO SCH (09:00)
[2020-05-11] MEDS ORDERED: Lisinopril/Hydrochlorothiazide 20/25 mg Tablet PO SCH (09:00)
[2020-05-11] MEDS: Multivitamins, Adult 10 ML, Thiamine HCl 100 MG, Folic Acid 1 MG in Dextrose 5 %-0.45 %... IV SCH (09:47)
--- NOTE | 2020-05-12 03:20 | DIS ---
DATE OF ADMISSION: 05/08/2020 DATE OF DISCHARGE: 05/11/2020 DISCHARGE DIAGNOSES: 1. Tonic-clonic seizure secondary to noncompliance and possible cocaine intoxication. 2. Gait unsteadiness. 3. Cough possibly secondary to gastroesophageal reflux disease versus bronchitis. BRIEF HISTORY OF PRESENT ILLNESS: This is a 54-year-old male with past medical history of stroke in the past, seizure, and hypertension, who presented to the emergency room due to unresponsiveness. The patient had an O2 saturation of 88 % on room air. His oxygen improved to 95% on room air. He reportedly had a seizure in the Emergency Department and then became vomiting. He was unable to maintain his own airway and was administered lorazepam. He was admitted to the hospital for further workup. HOSPITAL COURSE: Seizure: The patient reported noncompliance with his keppra. He had an EEG done that was unremarkable. A CT scan of his head, which showed no abnormalities. MRI of his brain showed no acute process, but an old occipital infarct in the right side. The patient was started on Keppra 1000 mg b.i.d., which was his home dose. He was seen by Neurology. Neurology thought this is most likely secondary to noncompliance and drug abuse and to resume his home dose. He was switched over to oral Keppra and did not have any further seizures. He will be discharged with Keppra 1000 mg p.o. b.i.d. He should follow up with Dr. Jennings from Neurology in 2 months. He is advised to refrain from any substance abuse. Cocaine abuse: The patient reports using cocaine on a regular basis. We tried to set him into inpatient rehab; however, they did not have any inpatient rehabs available directly from the hospital. Therefore, Case Management spoke to him and gave him resources for [facility], that he can call on discharge. Tobacco abuse: The patient was discharged with nicotine patch. Cough: Chest X ray was normal. He was treated with Flagyl empirically for possible aspiration pneumonia. He did have cough prior to being admitted to the hospital and stated that the cough mostly occurred at night while he was lying down. Therefore, he was discharged on Pepcid for possible GERD. He was given a prescription for azithromycin on discharge. If the Pepcid does not improve his cough, then he can take this. He should follow up with his PCP in a week. DISCHARGE PHYSICAL EXAMINATION: VITAL SIGNS: Temperature 98.1, heart rate 61, respiratory rate 18, O2 saturation 98% on room air, and blood pressure 149/79. GENERAL: The patient is alert, awake, and oriented x3. CVS: Regular rate and rhythm with no murmurs, rubs, or gallops. NEUROLOGIC: The patient's cranial nerves 2 through 12 are intact. He has no focal deficits. A 5/5 strength in his upper and lower extremities. He has full range of motion in his upper and lower extremities. He has intact sensation in all 4 extremities. LUNGS: Clear to auscultation bilaterally. ABDOMEN: Positive bowel sounds. Soft, nontender, and nondistended. EXTREMITIES: No edema. PERTINENT LABORATORY DATA: CBC 05/11: White count 5.6, hemoglobin 12.2, hematocrit 38.6, and platelet count 165. BMP 05/11: Potassium 3.4 and creatinine 1.38 on 05/09, which improved to 3.6 and 1.03 respectively on the day of discharge. Lactate 05/08: 3.2. Lactic acid 05/10: 1.9. LFTs 05/08: AST 35, ALT 33, and alkaline phosphatase 62. Ammonia: 27. Troponin I: 0.019, 0.022, and 0.023. Urine culture 05/08: No growth. Blood cultures 05/08: One of two coag-negative staph. U-tox 05/08: Positive for cocaine. Plasma alcohol level: Less than 10. COVID PCR 05/08: Negative. IMAGING: Chest x-ray 05/08: No acute process. CT brain 05/08: No acute process. MRI brain 05/09: Old right occipital lobe infarct. Chest x-ray 05/10: No acute process. DISCHARGE CONDITION: Stable. ACTIVITY: As tolerated. DIET: Heart healthy diet. DISCHARGE MEDICATIONS: 1. Nicotine patch one patch TD daily. 2. Keppra 1000 mg p.o. b.i.d. 3. Pepcid 20 mg p.o. at bedtime. 4. Azithromycin 500 on day 1, then 250 daily for four tablets thereafter, if cough persists after Pepcid. DISCHARGE INSTRUCTIONS: The patient should follow up with his PCP in a week. He should follow up with Dr. Jennings in 2 months for seizures. He should contact [facility] or [facility] for substance abuse rehab programs. Job ID: [id number] THOMAS
--- NOTE | 2020-05-12 10:41 | EEG ---
DATE OF SERVICE: ATTENDING PHYSICIAN: Marlee Mckenzie MD. This EEG was performed using 24-channel [employer] video digital EEG machine with 24-disk electrodes. This was an extended 2-hour 10-minute of inpatient video EEG recording. BACKGROUND: Posterior background rhythm was not observed. Low amplitude EEG with excessive beta activity intermixed with the background. HYPERVENTILATION: Not performed. PHOTIC STIMULATION: Not performed. SLEEP: No stage change was observed. EEG DIAGNOSES: 1. Low amplitude EEG with excessive beta activity intermixed with the background. 2. Absence of posterior background rhythm. CLINICAL INTERPRETATION: This EEG is consistent with moderate generalized nonspecific cerebral dysfunction. No ictal or interictal epileptiform abnormalities seen during the recording. Job ID: [id number]
== END 2020-05-11 11:35 | disposition home or self-care (01) | DRG 100 ==
LOC: ERS 08:16 → ERHOLD 12:45 → 2SE 20:42
PROVIDERS: ADMIT Internal Medicine; ATTEND Internal Medicine
DX: G40.409 Other generalized epilepsy and epileptic syndromes, not intractable, without status epilepticus (principal); J18.9 Pneumonia, unspecified organism; R40.2342 Coma scale, best motor response, flexion withdrawal, at arrival to emergency department; G93.41 Metabolic encephalopathy; E87.2 Acidosis; R26.81 Unsteadiness on feet; K21.9 Gastro-esophageal reflux disease without esophagitis; F14.129 Cocaine abuse with intoxication, unspecified; E78.00 Pure hypercholesterolemia, unspecified; Z96.653 Presence of artificial knee joint, bilateral; E78.5 Hyperlipidemia, unspecified; I12.9 Hypertensive chronic kidney disease with stage 1 through stage 4 chronic kidney disease, or unspecified chronic kidney disease; N18.3 Chronic kidney disease, stage 3 (moderate); F17.210 Nicotine dependence, cigarettes, uncomplicated; R40.2132 Coma scale, eyes open, to sound, at arrival to emergency department; R40.2242 Coma scale, best verbal response, confused conversation, at arrival to emergency department; Z91.14 Patient's other noncompliance with medication regimen
CPT/HCPCS: 36415; 36416; 51701; 70450; 70551; 71045; 80048; 80053; 80177; 80306; 80307; 81003; 81015; 82140; 82805; 83605; 84484; 85025; 87040; 87086; 87149; 90471; 90732; 95712; 95816; 95819; 95957; 96361; 96365; 96366; 96367; 96375; 96376; G0009; J0692; J1650; J1953; J2060; J2405; J3370; J3411; J3490; J7042; J7050; U0002

== ENCOUNTER 2021-11-05 21:54 | Emergency (ER) | payer OTHER ==
[2021-11-05] MEDS ORDERED: Lorazepam 2 MG/ML VIAL ONE ×3 (22:08→22:36)
[2021-11-05] MEDS ORDERED: levETIRAcetam in NS 100 ML ONE (22:11)
[2021-11-05 22:34] LABS: #Basophils 0.1 thou/uL (0.0-0.2); #Eosinphils 0.1 thou/uL (0.0-0.7); #Lymphocytes 4.2 thou/uL (1.20-3.40); #Monocytes 0.8 thou/uL (0.11-0.59); #Neutrophils 11.6 thou/uL (1.40-6.50); %Basophils 0.4 % (0.0-1.0); %Eosinophils 0.8 % (0.0-10.0); %Lymphocytes 25.1 % (21.0-51.0); %Monocytes 4.9 % (0.0-10.0); %Neutrophils 68.7 % (42.0-75.0); Hemoglobin 14.7 g/dL (14.0-18.0); Mean Corpuscular HGB CONC 32.7 g/dL (32.0-36.0); Mean Corpuscular Hemoglobin 27.6 pg (27.0-31.0); Mean Corpuscular Volume 84.4 fL (78.0-98.0); Mean Platelet Volume 8.4 fL (7.4-10.4); Platelet Count 247 thou/uL (130-400); RBC Distribution Width 13.5 % (11.5-14.5); Red Blood Cell (RBC) Count 5.31 mill/uL (4.70-6.10); White Blood Cell (WBC) Count 16.9 thou/uL (4.8-10.8)
[2021-11-05] MEDS ORDERED: Ketamine 50 MG/ML (10ML VIAL) ONE (22:45)
[2021-11-05 22:56] LABS: ALT (SGPT) 15 U/L (8-55); AST (SGOT) 20 U/L (5-34); Albumin 4.4 g/dL (3.5-5.0); Alkaline Phosphatase 47 U/L (40-110); Anion Gap 21 mmol/L (10-20); BUN (Urea Nitrogen) 14 mg/dL (8.4-25.7); Bilirubin, Total 0.3 mg/dL (0.2-1.2); Calc. Creatinine Clearance 0 mL/min (70-130); Calcium 10.2 mg/dL (7.8-10.44); Carbon Dioxide 21 mmol/L (22-29); Chloride 101 mmol/L (98-107); Globulin 3.3 g/dL (2.4-3.5); Glucose 137 mg/dL (70-105); Magnesium 2.4 mg/dL (1.6-2.6); Potassium 3.4 mmol/L (3.5-5.1); Protein, Total 7.7 g/dL (6.0-8.3); Sodium 140 mmol/L (136-145)
[2021-11-05 22:57] LABS: Acetaminophen Less than 6.0 mcg/mL (10.0-30.0); Alcohol Less than 10 mg/dL (Less than 10); Salicylate Less than 8.0 mg/dL (15.0-30.0)
== END 2021-11-06 06:55 | disposition home or self-care (01) ==
LOC: ERS 21:54
DX: G40.909 Epilepsy, unspecified, not intractable, without status epilepticus (principal); I10 Essential (primary) hypertension; E78.5 Hyperlipidemia, unspecified; E78.00 Pure hypercholesterolemia, unspecified; F17.210 Nicotine dependence, cigarettes, uncomplicated; Z79.899 Other long term (current) drug therapy
CPT/HCPCS: 70450; 71045; 80053; 80307; 83735; 85025; 96365; 96366; 96367; 96375; 96376; J1953; J2060

== ENCOUNTER 2021-12-31 19:34 | Emergency (ER) | payer OTHER ==
[2021-12-31] MEDS ORDERED: Lorazepam 2 MG/ML VIAL ONE (20:02)
[2021-12-31] MEDS ORDERED: levETIRAcetam in NS 100 ML ONE (20:09)
[2021-12-31 21:08] LABS: #Basophils 0.1 thou/uL (0.0-0.2); #Eosinphils 0.1 thou/uL (0.0-0.7); #Lymphocytes 5.1 thou/uL (1.20-3.40); #Monocytes 1.1 thou/uL (0.11-0.59); #Neutrophils 4.1 thou/uL (1.40-6.50); %Basophils 0.9 % (0.0-1.0); %Eosinophils 1.4 % (0.0-10.0); %Lymphocytes 48.7 % (21.0-51.0); %Monocytes 10.2 % (0.0-10.0); %Neutrophils 38.9 % (42.0-75.0); Hemoglobin 14.3 g/dL (14.0-18.0); Mean Corpuscular HGB CONC 30.9 g/dL (32.0-36.0); Mean Corpuscular Hemoglobin 27.4 pg (27.0-31.0); Mean Corpuscular Volume 88.5 fL (78.0-98.0); Mean Platelet Volume 9.4 fL (7.4-10.4); Platelet Count 189 thou/uL (130-400); RBC Distribution Width 13.7 % (11.5-14.5); Red Blood Cell (RBC) Count 5.23 mill/uL (4.70-6.10); White Blood Cell (WBC) Count 10.5 thou/uL (4.8-10.8)
[2021-12-31 21:28] LABS: Acetaminophen Less than 6.0 mcg/mL (10.0-30.0); Alcohol Less than 10 mg/dL (Less than 10); CK (CPK) 664 U/L (30-200); Magnesium 2.3 mg/dL (1.6-2.6); Salicylate Less than 8.0 mg/dL (15.0-30.0)
[2021-12-31 21:30] LABS: ALT (SGPT) 16 U/L (8-55); AST (SGOT) 29 U/L (5-34); Albumin 4.1 g/dL (3.5-5.0); Alkaline Phosphatase 50 U/L (40-110); Anion Gap 29 mmol/L (10-20); BUN (Urea Nitrogen) 21 mg/dL (8.4-25.7); Bilirubin, Total 0.4 mg/dL (0.2-1.2); Calc. Creatinine Clearance 0 mL/min (70-130); Calcium 10.1 mg/dL (7.8-10.44); Carbon Dioxide 12 mmol/L (22-29); Chloride 108 mmol/L (98-107); Globulin 3.5 g/dL (2.4-3.5); Glucose 114 mg/dL (70-105); Potassium 3.8 mmol/L (3.5-5.1); Protein, Total 7.6 g/dL (6.0-8.3); Sodium 145 mmol/L (136-145)
[2021-12-31 22:19] LABS: Bacteria/HPF None Seen HPF (None Seen); Bilirubin Negative (Negative); Blood, Urine Negative (Negative); Clarity Clear (Clear); Glucose, Urine (Dipstick) Normal (Negative); Ketone, Urine Trace mg/dL (Negative); Leukocyte Negative Leu/uL (Negative); Nitrite Negative (Negative); Protein, Urine (Dipstick) 30 mg/dL (Neg-Trace); RBC/HPF 0-3 HPF (0-3); Specific Gravity, Urine 1.036 (1.002-1.036); Squamous Epithelial None Seen HPF (0-3); WBC/HPF 0-3 HPF (0-3); pH, Urine 5.5 (5.0-9.0)
[2021-12-31 22:26] LABS: Amphetamine Not Detected (NotDetected); Barbiturates Screen Not Detected (NotDetected); Benzodiazepine Screen Not Detected (NotDetected); Cocaine Metabolite Screen Detected (NotDetected); Methadone Not Detected (NotDetected); Methamphetamine Not Detected (NotDetected); Opiate Screen Not Detected (NotDetected); Oxycodone Screen Not Detected (NotDetected); Phencyclidine (PCP) Not Detected (NotDetected); THC/Cannabinoid Screen Not Detected (NotDetected); Tricyclic Screen Not Detected (NotDetected)
== END 2021-12-31 23:01 | disposition home or self-care (01) ==
LOC: ERS 19:34
DX: R56.9 Unspecified convulsions (principal); F14.10 Cocaine abuse, uncomplicated; I10 Essential (primary) hypertension; F17.210 Nicotine dependence, cigarettes, uncomplicated
CPT/HCPCS: 36415; 71045; 80053; 80177; 80306; 80307; 81003; 81015; 82550; 83605; 83735; 85025; 93005; 96372; 96374; J1953; J2060